=== PATIENT | female | born 1950 | race Caucasian/White ===

== ENCOUNTER 2017-04-09 18:49 | Inpatient (IN) | payer MEDICARE, OTHER ==
[2017-04-09] MEDS ORDERED: methylPREDNISolone 125 MG* 2 ML VIAL IV ONE (18:55)
[2017-04-09] MEDS ORDERED: LEVOFLOXACIN 750 MG IVPB ONE (18:55)
[2017-04-09] MEDS ORDERED: Albuterol/Ipratropium NEB.SOL* Albuterol 2.5 MG/Ipratropium 0.5 MG 3 ML INH ONE (18:55)
[2017-04-09 19:27] LABS: Hematocrit 56 % (35-47); Hemoglobin 19.5 g/dl (12.0-16.0); Mean Corpuscular HGB Conc 35 g/dl (31-36); Mean Corpuscular Hemoglobin 36 pg (27-31); Mean Corpuscular Volume 103 fL (80-97); Mean Platelet Volume 7 um3 (7.4-10.4); Red Blood Count 5.41 10^6/ul (4.0-5.4); Red Cell Distribution Width 14 % (10.5-15); White Blood Count 5.7 10^3/ul (3.5-10.8)
[2017-04-09 19:28] LABS: Add Diff/Slide Review? Slide Review Added; Comments Flag Yes
[2017-04-09] MEDS: NS 0.9% 1000 ML* 2,000 ML IV ONE ×2 (19:29→20:12)
[2017-04-09] MEDS ORDERED: cefTRIAXone(*) 1 GM in NS 0.9% 50 ML* 50 ML IVPB ONE (19:30)
[2017-04-09] MEDS ORDERED: Azithromycin IV(*) 500 MG in NS 0.9% 250 ML* 250 ML IVPB ONE (19:30)
[2017-04-09 19:46] LABS: Albumin 4.2 g/dL (3.2-5.2); BUN/Creatinine Ratio 10.9 (8-20); Calcium 9.5 mg/dL (8.6-10.3); EGFR African American 120.1 (>60); EGFR Non-African American 93.4 (>60); Globulin 3.1 g/dL (2-4); Potassium 4.2 mmol/L (3.5-5.0); Total Bilirubin 0.4 mg/dL (0.2-1.0); Total Protein 7.3 g/dL (6.4-8.9)
[2017-04-09] MEDS ORDERED: Benzonatate CAP* 100 MG PO PRN (19:48)
--- NOTE | 2017-04-09 19:54 | RAD ---
Indication: Cough, shortness of breath. Bronchitis. Chronic obstructive pulmonary disease. Comparison: December 24, 2014 Technique: Upright AP 1913 hours Report: Elevated lung volumes and both diffuse mild prominence of the interstitial markings and patchy rarefaction of the mid to upper lung zone interstitial markings. No focal pulmonary lesion, compelling alveolar consolidation, pleural effusion, pneumothorax. The heart, pulmonary vasculature, and mediastinal contours are unremarkable. IMPRESSION: Stigmata of obstructive lung disease. No acute pulmonary or cardiac process evident.
[2017-04-09] MEDS ORDERED: Azithromycin IV(*) 500 MG in NS 0.9% 250 ML* 250 ML IVPB SCH (20:00)
--- NOTE | 2017-04-09 20:11 | ED ---
Bisi Bergeron Alok, scribed for Chris Evangelista MD on 04/09/17 at 1942 . Shortness of Breath - HPI Summary HPI Summary: 66F presents to the ED for SOB for the past 5 weeks, worsening since week. Pt was last seen at 3 days ago and given Zpak and prednisone with no alleviation. Pt tried using her nebulizer at home with no alleviation. Pt also notes productive cough with clear phlem and wheezing. Pt denies fever, chills, CP, edema or calf pain. Pt denies vomit. Pt states she has slept upright for the last few years. PMHx includes COPD and emphysema. Additional PMHx includes h /o sz which she takes dilantin for. - History of Current Complaint Chief Complaint: EDShortnessOfBreath Time Seen by Provider: 04/09/17 18:54 Hx Obtained From: Patient Onset/Duration: Lasting Weeks, Still Present, Worse Since - Last week Timing: Constant Current Severity: Moderate Dyspnea At: Rest Aggrevating Factors: Nothing Alleviating Factors: Nothing Associated Signs & Symptoms: Cough (Productive), Wheezing - Allergy/Home Medications Allergies/Adverse Reactions: Allergies Allergy/AdvReac Type Severity Reaction Status Date / Time Fluoxetine [From Prozac] Allergy Severe Altered Verified 04/09/17 18:58 Mental Status Levofloxacin [From Levaquin] AdvReac Severe Nausea And Verified 04/09/17 18:58 Vomiting Codeine AdvReac Intermediate Nausea And Verified 04/09/17 18:58 Vomiting ENVIRONMENTAL/SEASONAL Allergy RUNNY Uncoded 04/09/17 18:58 ALLERGIES NOSE, COUGH, PMH/Surg Hx/FS Hx/Imm Hx Endocrine/Hematology History: Denies: Hx Diabetes, Hx Sickle Cell Disease Cardiovascular History: Reports: Hx Hypercholesterolemia, Hx Peripheral Vascular Disease - chronic ischemic Denies: Hx Hypertension, Hx Pacemaker/ICD, Other Cardiovascular Problems/ Disorders Respiratory History: Reports: Hx Asthma - Puffer qid and occas nebulizer, Hx Chronic Obstructive Pulmonary Disease (COPD), Other Respiratory Problems/ Disorders - PATIENT ON 2 LITERS OF 02 AT NIGHT GI History: Reports: Hx Gastroesophageal Reflux Disease - CONTROL WITH MEDICATION, Hx Hiatal Hernia History: Denies: Hx Dialysis, Hx Renal Disease, Other Problems/Disorders Musculoskeletal History: Reports: Hx Arthritis - BACK, BILATERAL KNEES Sensory History: Reports: Hx Cataracts - BILATERAL LENS, Hx Contacts or Glasses - GLASSES Denies: Hx Hearing Aid Opthamlomology History: Reports: Hx Cataracts - BILATERAL LENS, Hx Contacts or Glasses - GLASSES Neurological History: Reports: Hx Headaches, Hx Nerve Disease - neuropathy both feet, Hx Seizures - hx of seizures, Hx Transient Ischemic Attacks (TIA), Other Neuro Impairments/Disorders - SHORT TERM MEMORY LOSS, PAIN CLINIC PATIENT Psychiatric History: Reports: Hx Anxiety - Ativan relieves, Hx Depression - tx with meds, Hx Panic Disorder - Cancer History Cancer Type, Location and Year: [facility] - W/ SEIZURE DISORDER - Surgical History Surgery Procedure, Year, and Place: [address], [facility], [employer], [place] 1987 BRAIN TUMOR - [facility] 2012 -LAMINECTOMY [facility] - DECOMPRESSION NERVE ROOT APRIL 2013- BILATERAL CATARACTS,01/02/15 CERVICAL HEMILAMINECTOMY ANDFORAMINTOMY RT C5-6 Hx Anesthesia Reactions: No Infectious Disease History: No Infectious Disease History: Denies: Hx Hepatitis, Traveled Outside the in Last 30 Days - Social History Alcohol Use: None Substance Use Type: Reports: None Hx Tobacco Use: Yes Smoking Status (MU): Current Every Day Smoker Type: Cigars Amount Used/How Often: 2 pdd Length of Time of Smoking/Using Tobacco: 41 YRS Have You Smoked in the Last Year: Yes Review of Systems Negative: Fever, Chills Negative: Chest Pain Positive: Shortness Of Breath, Cough Negative: Vomiting Negative: Edema All Other Systems Reviewed And Are Negative: Yes Physical Exam - Summary Physical Exam Summary: The patient is ill-appearing The skin is warm and dry and skin color reflects adequate perfusion. No cyanosis. HEENT: The head is normocephalic and atraumatic. The pupils are equal and reactive. The conjunctivae are clear and without drainage. Nares are patent and without drainage. Mouth reveals extremely dry mucous membranes and the throat is with white patches on tongue and hard palate which could be thrush. The external ears are intact. The ear canals are patent and without drainage. The tympanic membranes are intact. Neck is supple with full range of motion and non-tender. There is no neck stridor. There are no carotid bruits. There is no neck vein distension. Respiratory: Chest is non-tender. Lungs diffuse rhonchi and wheezing throughout lung davila. No wheezing. Cardiovascular: Hear is regular rate and rhythm. There is no murmur or rub auscultated. There is no peripheral edema and pulses are symmetrical and equal. Abdomen: The abdomen is soft and non-tender. There are normal bowel sounds heard in all four quadrants and there is no organomegaly palpated. Musculoskeletal: There is no back pain noted. Extremities are non-tender with full range of motion. Capillary refill 3 seconds. There is no peripheral edema or calf tenderness elicited. Neurological: Patient is alert and oriented to person, place and time. The patient has symmetrical motor strength in all four extremities. Cranial nerves are grossly intact. Deep tendon reflexes are symmetrical and equal in all four extremities. Psychiatric: The patient has an appropriate affect and does not exhibit any anxiety or depression. Triage Information Reviewed: Yes Vital Signs On Initial Exam: Initial Vitals Temp Pulse Resp BP Pulse Ox 98.4 F 130 20 122/83 91 04/09/17 18:51 04/09/17 18:51 04/09/17 18:51 04/09/17 18:51 04/09/17 18:51 Vital Signs Reviewed: Yes - Blake Coma Scale Coma Scale Total: 15 Diagnostics - Vital Signs Vital Signs Temp Pulse Resp BP Pulse Ox 04/09/17 19:05 98.4 F 84 22 144/89 92 04/09/17 19:04 98.4 F 87 22 144/89 89 04/09/17 18:51 98.4 F 130 20 122/83 91 - Laboratory Lab Results: Lab Results 04/09/17 Range/Units 19:20 WBC 5.7 (3.5-10.8) 10^3/ul RBC 5.41 H (4.0-5.4) 10^6/ul Hgb 19.5 H (12.0-16.0) g/dl Hct 56 H (35-47) % MCV 103 H (80-97) fL MCH 36 H (27-31) pg MCHC 35 (31-36) g/dl RDW 14 (10.5-15) % Plt Count 154 (150-450) 10^3/ul MPV 7 L (7.4-10.4) um3 Neut % (Auto) 78.8 (38-83) % Lymph % (Auto) 17.8 L (25-47) % [place] % (Auto) 2.9 (1-9) % Eos % (Auto) 0 (0-6) % Baso % (Auto) 0.5 (0-2) % Absolute Neuts (auto) 4.5 (1.5-7.7) 10^3/ul Absolute Lymphs (auto) 1.0 (1.0-4.8) 10^3/ul Absolute Monos (auto) 0.2 (0-0.8) 10^3/ul Absolute Eos (auto) 0 (0-0.6) 10^3/ul Absolute Basos (auto) 0 (0-0.2) 10^3/ul Absolute Nucleated RBC 0 10^3/ul Nucleated RBC % 0 Result Diagrams: 04/09/17 19:20 04/09/17 19:20 Lab Statement: Any lab studies that have been ordered have been reviewed, and results considered in the medical decision making process. - Radiology CXR Xray Interpretation: Positive (See Comments) - IMPRESSION: Stigmata of obstructive lung disease. No acute pulmonary or cardiac process evident. Radiology Interpretation Completed By: Radiologist - EKG 1535 Cardiac Rate: NL - 80 bpm EKG Rhythm: Sinus Rhythm EKG Interpretation: Nml axis. No STEMI. Course/Dx - Diagnoses Differential Diagnosis/HQI/PQRI: Positive: COPD Exacerbation, Pneumonia Provider Diagnoses: Acute dyspnea, PNA (pneumonia), COPD (chronic obstructive pulmonary disease) - Physician Notifications Discussed Care of Patient With: Cory Qureshi - Will admit pt to [facility] Time Discussed With Above Provider: 19:37 - Critical Care Time Critical Care Time: 30-74 min - 30 min Discharge - Discharge Plan Condition: Stable Disposition: ADMITTED TO [facility] Referrals: Gagan Baumann MD [Primary Care Provider] - The documentation as recorded by the Bisi brambila Alok accurately reflects the service I personally performed and the decisions made by , Chris Evangelista MD.
[2017-04-09 20:14] LABS: C Reactive Protein 16.19 mg/L (< 5.00)
[2017-04-09 20:21] LABS: PCO2 Arterial 52 mmHg (35-45)
[2017-04-09] MEDS ORDERED: Albuterol HFA INHALER* 8 gm MDI INH PRN (20:47)
[2017-04-09] MEDS: Nicotine PATCH 21 MG/24 HR* PATCH TRANSDERM SCH (21:47)
[2017-04-09] MEDS: Gabapentin CAP(*) 100 MG PO SCH (21:53)
[2017-04-09] MEDS: Famotidine TAB* 20 MG PO SCH (21:53)
[2017-04-09] MEDS: Acetaminophen TAB* 325 MG PO SCH (21:53)
[2017-04-09] MEDS: LORazepam TAB(*) 1 MG PO SCH (21:54)
[2017-04-09] MEDS: Phenytoin CAP(*) 100 MG CAP.ER PO SCH (21:54)
[2017-04-09] MEDS: Heparin VIAL(*) 5000 UNITS/ML VIAL (FIVE THOUSAND) SUBCUT SCH (22:45)
[2017-04-10 00:38] LABS: Urine Bilirubin Negative (Negative); Urine Glucose Negative (Negative); Urine Nitrite Negative (Negative)
[2017-04-10] MEDS: methylPREDNISolone SOD 40 MG* 1 ML VIAL IV SCH ×3 (04:37→19:47)
[2017-04-10] MEDS: Heparin VIAL(*) 5000 UNITS/ML VIAL (FIVE THOUSAND) SUBCUT SCH ×3 (05:58→21:30)
[2017-04-10] MEDS ORDERED: Pneumococcal Vac Polyvalent* 0.5 ML VIAL IM ONE (09:00)
[2017-04-10] MEDS: Nicotine PATCH 21 MG/24 HR* PATCH TRANSDERM SCH (09:00)
[2017-04-10] MEDS: Gabapentin CAP(*) 100 MG PO SCH ×3 (09:03→20:53)
[2017-04-10] MEDS: LORazepam TAB(*) 1 MG PO SCH ×2 (09:05→20:54)
[2017-04-10] MEDS: CMC:Escitalopram (NF) 10 MG TAB PO SCH (09:05)
[2017-04-10] MEDS: Cetirizine* 10 MG TAB PO SCH (09:05)
[2017-04-10] MEDS: Famotidine TAB* 20 MG PO SCH ×2 (09:05→20:56)
[2017-04-10] MEDS: Pseudoephedrine HCL ER TAB* 120 MG PO SCH (09:06)
[2017-04-10] MEDS: Phenytoin CAP(*) 100 MG CAP.ER PO SCH ×2 (09:06→20:54)
[2017-04-10] MEDS ORDERED: Albuterol/Ipratropium NEB.SOL* Albuterol 2.5 MG/Ipratropium 0.5 MG 3 ML INH PRN (09:16)
[2017-04-10] MEDS: Cholecalciferol TAB* 1000 UNITS PO SCH (12:52)
--- NOTE | 2017-04-10 13:01 | HP ---
CC: Dr. Baumann.* HISTORY AND PHYSICAL: ADMISSION DATE: 04/09/17 CHIEF COMPLAINT: Shortness of breath. HISTORY OF PRESENT ILLNESS: The patient is a 66-year-old woman who presents to [facility] who comes in complaining about shortness of breath that started about 5 weeks ago. She went to [facility] about few days afterwards with increased coughing, wheezing, and was placed on doxycycline and prednisone and initially felt somewhat better. She did have some occasional chest pain, but that seemed to occur whenever she coughed. The cough was productive of clear phlegm and has not changed. Her shortness of breath became worse and her wheezing became worse. She went back to [facility] again on Wednesday at the urging of her daughter. There, she was given Zithromax, another tapering dose of prednisone starting at 50 mg, and refill of her nebulizers. It should be noticed that the patient did run out of her nebulizers at home for some time, which obviously made the situation somewhat worse. She comes in today with worsening shortness of breath, worsening wheezing, and worsening cough. She is being admitted for a COPD exacerbation. PAST MEDICAL HISTORY: The patient's past medical history is noted for COPD. She has a seizure disorder. She has had a meningioma removed. She has had trigeminal neuralgia. She has had appendectomy. She has had bilateral cataract surgery. She has had a lower spine surgery in the form of a laminectomy and she has had all her teeth removed and dentures placed. MEDICATIONS: Her current home medications are as follows: 1. Tegretol 200 mg twice daily. 2. Albuterol inhaler 2 puffs every 4 hours as needed. 3. Lexapro 20 mg daily. 4. Tylenol PM 2 tablets at bedtime. 5. Vitamin D3 4000 units daily. 6. Zyrtec D 1 tab daily. 7. Dilantin 100 mg twice daily. 8. Lorazepam 1 mg twice daily. 9. Gabapentin 300 mg 3 times a day. 10. Ranitidine 300 mg twice a day. ALLERGIES: She has allergies to LEVAQUIN, PROZAC, CODEINE, and SEASONAL ALLERGIES. FAMILY HISTORY: Mother at 81 of coronary artery disease and heart failure. Father at 73 of CVA. SOCIAL HISTORY: She still smokes 2-1/2 packs a day. He has smoked up to 4 packs a day and has done this since he was 16 years old. No alcohol or recreational drug use. She is on disability for her seizures. She is a with 7 children. Her daughter, Kell Wilkes, is her healthcare proxy. REVIEW OF SYSTEMS: A 14-point review of systems was completed with the patient. All pertinent positives and negatives are in the history of present illness, otherwise negative. PHYSICAL EXAMINATION GENERAL: A very pleasant woman, lying in bed, somewhat short of breath, but not in acute distress. VITAL SIGNS: Temperature 98.4 degrees, heart rate 81 beats per minute, respiratory rate 13 breaths per minute, pulse ox 93%, blood pressure 120/90. HEENT: Normocephalic, atraumatic. Pupils are equal, round, and reactive to light. Moist mucous membranes. NECK: Supple. No JVD, bruits, or palpable thyroid or lymphadenopathy. CHEST: Bilateral diffuse wheezing or rhonchi. CARDIOVASCULAR: S1, S2 appreciated. ABDOMINAL EXAM: Positive bowel sounds in all 4 quadrants. Soft, nontender, nondistended. EXTREMITIES: No cyanosis, clubbing, or edema. +2 pulses bilaterally. NEURO: Alert and oriented x3. Moves all extremities. SKIN: No rashes or abnormalities. DIAGNOSTIC STUDIES/LAB DATA: White count of 5.7, hemoglobin 19.5, hematocrit 56, platelets are 154. Sodium 135, potassium 4.2, chloride 100, CO2 30, BUN 7, creatinine 1.64, glucose 131. Her INR is 0.86. ABG, pH 7.24, pCO2 52, pO2 56, O2 sat 93.6. Chest x-ray was interpreted by Radiology as stigmata of COPD, no acute pulmonary process evident. EKG shows normal sinus rhythm at 80 beats per minute, normal axis, no acute ST- T wave changes. ASSESSMENT AND PLAN: 1. Possible pneumonia with chronic obstructive pulmonary disease exacerbation. I will treat her as such, place the patient on azithromycin and Zosyn. Check a sputum C and S, urine for legionella, and pneumococcal antigen. She also obviously has a chronic obstructive pulmonary disease exacerbation. We will continue Solu-Medrol, respiratory driven protocol. 2. Seizure disorder. Continue current regimen. 3. Trigeminal neuralgia. Continue current regimen. 4. Depression. Continue Lexapro. 5. Tobacco abuse disorder. Nicotine patch. 6. DVT prophylaxis. Heparin subcu. 7. FEN. Regular diet. 8. The patient is a full code. TIME SPENT: Over 70 minutes was spent on this H and P, more than 45 minutes of which was spent in direct [id number] contact with the patient in evaluation, physical exam, and counselling and coordination of care. [id number]/CPS #: [id number] MTDD
[2017-04-10] MEDS: Albuterol/Ipratropium NEB.SOL* Albuterol 2.5 MG/Ipratropium 0.5 MG 3 ML INH SCH ×2 (13:22→19:26)
[2017-04-10] MEDS ORDERED: LORazepam TAB(*) 0.5 MG PO PRN (13:39)
--- NOTE | 2017-04-10 13:48 | PN ---
Subjective Date of Service: 04/10/17 Interval History: This is a 66 yo female with COPD, sz d/o, and trigeminal neuralgia who presented with c/o SOB. Patient was severely hypoxic in the emergency room initially requiring 10L via face mask. She is still on 8L via NC. She states that she needed home O2 several years ago but was told it was not necessary. She was started on Advair a few days ago, but prior to that was not on any maintenance inhalers and reports needing her albuterol inhaler ~once daily at baseline. This am she is still quite SOB with high O2 demands. She states her coughing fits have improved slightly but her dyspnea is not significantly better than it was at admission. Objective Active Medications: Acetaminophen (Tylenol Tab*) 975 mg PO BEDTIME [facility] Last Admin: 04/09/17 21:53 Dose: 975 mg Albuterol (Ventolin Hfa Inhaler*) 2 puff INH Q4H PRN PRN Reason: SOB/WHEEZING Albuterol/Ipratropium (Duoneb (Albuterol 2.5 Mg/Ipratropium 0.5 Mg)) 1 neb INH [id number] AWAKE [facility] Last Admin: 04/10/17 13:22 Dose: 1 neb Albuterol/Ipratropium (Duoneb (Albuterol 2.5 Mg/Ipratropium 0.5 Mg)) 1 neb INH Q4H PRN PRN Reason: SOB/WHEEZING Benzonatate (Tessalon Cap*) 200 mg PO TID PRN PRN Reason: COUGH Cetirizine HCl (Zyrtec*) 10 mg PO DAILY [facility] Last Admin: 04/10/17 09:05 Dose: 10 mg Cholecalciferol (Vitamin D Tab*) 4,000 units PO 1200 [facility] Last Admin: 04/10/17 12:52 Dose: 4,000 units Diphenhydramine HCl (Benadryl Po*) 50 mg PO BEDTIME [facility] Escitalopram Oxalate (Lexapro (Nf)) 20 mg PO DAILY [facility] Last Admin: 04/10/17 09:05 Dose: 20 mg Famotidine (Pepcid Tab*) 40 mg PO BID [facility] PRN Reason: Protocol Last Admin: 04/10/17 09:05 Dose: 40 mg Gabapentin (Neurontin Cap(*)) 300 mg PO TID [facility] Last Admin: 04/10/17 12:53 Dose: 300 mg Heparin Sodium (Porcine) (Heparin Vial(*)) 5,000 units SUBCUT Q8HR [facility] Last Admin: 04/10/17 12:52 Dose: 5,000 units Piperacillin Sod/Tazobactam (Sod 3.375 gm/ Sodium Chloride) 100 mls @ 25 mls/ hr IVPB Q8H [facility] Last Admin: 04/10/17 12:50 Dose: 25 mls/hr Azithromycin 500 mg/ Sodium (Chloride) 250 mls @ 250 mls/hr IVPB Q24HR@2000 [facility] Lorazepam (Ativan Tab(*)) 1 mg PO BID [facility] Last Admin: 04/10/17 09:05 Dose: 1 mg Methylprednisolone Sodium Succinate (Solu-Medrol 40 Mg) 40 mg IV Q8H [facility] Last Admin: 04/10/17 12:52 Dose: 40 mg Nicotine (Nicotine Patch 21 Mg/24 Hr*) 1 patch TRANSDERM Q24HR [facility] Last Admin: 04/10/17 09:00 Dose: 1 patch Pharmacy Profile Note (Nicotine Patch Removal Note*) 1 note PATCH OFF 2100 [facility] Phenytoin Sodium (Dilantin Cap(*)) 100 mg PO BID [facility] Last Admin: 04/10/17 09:06 Dose: 100 mg Pseudoephedrine HCl (Sudafed 12 Hour*) 120 mg PO DAILY [facility] Last Admin: 04/10/17 09:06 Dose: 120 mg Vital Signs: Temp Pulse Resp BP Pulse Ox 98.3 F 77 18 117/63 92 04/10/17 07:23 04/10/17 13:30 04/10/17 13:30 04/10/17 07:23 04/10/17 13:30 Oxygen Devices in Use Now: Nasal Cannula Appearance: 66 yo female who appears older than her stated age with some increased work of breathing Neck: NL Appearance and Movements; NL JVP Respiratory: Symmetrical Chest Expansion and Respiratory Effort, - - prolonged exp phase and tachypneic diffuse wheezing and rhonchi Cardiovascular: NL Sounds; No Murmurs; No JVD, RRR Extremities: No Edema Skin: No Rash or Ulcers Neurological: Alert and Oriented x 3 Result Diagrams: 04/09/17 19:20 04/09/17 19:20 Additional Lab and Data: . Microbiology and Other Data: Microbiology 04/10/17 00:25 Legionella Urinary Antigen - Final Urine Negative Legionella Streptococcus pneumoniae Ag Screen - Final Negative S. pneumo Antigen Diagnostic Imaging: CXR - chronic changes assoc with COPD, but nothing acute Assess/Plan/Problems-Billing Assessment: This is a 66 yo female with COPD, sz d/o and trigeminal neuralgia admitted with a COPD exacerbation. - Patient Problems (1) COPD exacerbation Comment: Patient's O2 requirements remain quite high, no supp O2 needs at baseline She remains tachypneic and dyspneic Cont IV solumedrol and azithromycin Start schedule Duonebs, Dulera and spiriva Use prn Ativan to reduce anxiety and air hunger (2) Seizure disorder Comment: Sz precautions in place Stable Cont home meds (3) Trigeminal neuralgia Comment: Cont tegretol (4) Full code status (5) DVT prophylaxis Comment: SQ heparin Status and Disposition: Inpatient. Anticipate additional 2-3d LOS.
[2017-04-10] MEDS ORDERED: Spiriva Inhaler DEVICE* 1 EACH DEVICE INH ONE (14:00)
[2017-04-10] MEDS: carBAMazepine TAB(*) 200 MG PO SCH ×2 (15:44→20:55)
[2017-04-10] MEDS: Tiotropium CAP.INH* CAP.INH/18 MCG INH SCH (15:44)
[2017-04-10] MEDS: Azithromycin IV(*) 500 MG in NS 0.9% 250 ML* 250 ML IVPB SCH (19:37)
[2017-04-10] MEDS: Mometasone/Formoter 200/5 MDI INH SCH (20:38)
[2017-04-10] MEDS: diPHENhydraMINE PO* 50 MG PO SCH (20:54)
[2017-04-10] MEDS: Acetaminophen TAB* 325 MG PO SCH (20:54)
[2017-04-10] MEDS: Nicotine Patch Removal NOTE PATCH OFF SCH (20:59)
[2017-04-10] MEDS ORDERED: carBAMazepine TAB(*) 200 MG PO SCH (21:00)
[2017-04-11] MEDS: Albuterol/Ipratropium NEB.SOL* Albuterol 2.5 MG/Ipratropium 0.5 MG 3 ML INH SCH ×4 (00:56→19:00)
[2017-04-11] MEDS: methylPREDNISolone SOD 40 MG* 1 ML VIAL IV SCH ×3 (04:05→19:30)
[2017-04-11] MEDS: Heparin VIAL(*) 5000 UNITS/ML VIAL (FIVE THOUSAND) SUBCUT SCH ×3 (06:00→21:48)
[2017-04-11] MEDS: Cetirizine* 10 MG TAB PO SCH (07:37)
[2017-04-11] MEDS: carBAMazepine TAB(*) 200 MG PO SCH ×2 (07:38→20:56)
[2017-04-11] MEDS: Pseudoephedrine HCL ER TAB* 120 MG PO SCH (07:38)
[2017-04-11] MEDS: CMC:Escitalopram (NF) 10 MG TAB PO SCH (07:39)
[2017-04-11] MEDS: Famotidine TAB* 20 MG PO SCH ×2 (07:39→20:58)
[2017-04-11] MEDS: Gabapentin CAP(*) 100 MG PO SCH ×3 (07:40→20:57)
[2017-04-11] MEDS: Nicotine PATCH 21 MG/24 HR* PATCH TRANSDERM SCH (07:41)
[2017-04-11] MEDS: Phenytoin CAP(*) 100 MG CAP.ER PO SCH ×2 (07:41→20:56)
[2017-04-11] MEDS: LORazepam TAB(*) 1 MG PO SCH ×2 (07:44→20:58)
[2017-04-11] MEDS: Tiotropium CAP.INH* CAP.INH/18 MCG INH SCH (08:08)
[2017-04-11] MEDS: Mometasone/Formoter 200/5 MDI INH SCH ×2 (08:08→19:00)
--- NOTE | 2017-04-11 11:58 | PN ---
Subjective Date of Service: 04/11/17 Interval History: Patient reports improvement in her dyspnea and cough today. She was able to get some sleep last night. Her level of anxiety has improved. She is still requiring high levels of O2. Objective Active Medications: Acetaminophen (Tylenol Tab*) 975 mg PO BEDTIME [facility] Last Admin: 04/10/17 20:54 Dose: 975 mg Albuterol (Ventolin Hfa Inhaler*) 2 puff INH Q4H PRN PRN Reason: SOB/WHEEZING Albuterol/Ipratropium (Duoneb (Albuterol 2.5 Mg/Ipratropium 0.5 Mg)) 1 neb INH [id number] AWAKE [facility] Last Admin: 04/11/17 08:07 Dose: 1 neb Albuterol/Ipratropium (Duoneb (Albuterol 2.5 Mg/Ipratropium 0.5 Mg)) 1 neb INH Q4H PRN PRN Reason: SOB/WHEEZING Benzonatate (Tessalon Cap*) 200 mg PO TID PRN PRN Reason: COUGH Carbamazepine (Tegretol Tab(*)) 200 mg PO BID [facility] Last Admin: 04/11/17 07:38 Dose: 200 mg Cetirizine HCl (Zyrtec*) 10 mg PO DAILY [facility] Last Admin: 04/11/17 07:37 Dose: 10 mg Cholecalciferol (Vitamin D Tab*) 4,000 units PO 1200 [facility] Last Admin: 04/10/17 12:52 Dose: 4,000 units Diphenhydramine HCl (Benadryl Po*) 50 mg PO BEDTIME [facility] Last Admin: 04/10/17 20:54 Dose: 50 mg Escitalopram Oxalate (Lexapro (Nf)) 20 mg PO DAILY [facility] Last Admin: 04/11/17 07:39 Dose: 20 mg Famotidine (Pepcid Tab*) 40 mg PO BID [facility] PRN Reason: Protocol Last Admin: 04/11/17 07:39 Dose: 40 mg Gabapentin (Neurontin Cap(*)) 300 mg PO TID [facility] Last Admin: 04/11/17 07:40 Dose: 300 mg Heparin Sodium (Porcine) (Heparin Vial(*)) 5,000 units SUBCUT Q8HR [facility] Last Admin: 04/11/17 06:00 Dose: 5,000 units Piperacillin Sod/Tazobactam (Sod 3.375 gm/ Sodium Chloride) 100 mls @ 25 mls/ hr IVPB Q8H [facility] Last Admin: 04/11/17 04:06 Dose: 25 mls/hr Azithromycin 500 mg/ Sodium (Chloride) 250 mls @ 250 mls/hr IVPB Q24HR@2000 [facility] Last Admin: 04/10/17 19:37 Dose: 250 mls/hr Lorazepam (Ativan Tab(*)) 1 mg PO BID [facility] Last Admin: 04/11/17 07:44 Dose: Not Given Lorazepam (Ativan Tab(*)) 0.5 mg PO Q6H PRN PRN Reason: ANXIETY Last Admin: 04/10/17 15:53 Dose: 0.5 mg Methylprednisolone Sodium Succinate (Solu-Medrol 40 Mg) 40 mg IV Q8H [facility] Last Admin: 04/11/17 04:05 Dose: 40 mg Mometasone Furoate/Formoterol Fumar (Dulera 200/5 Mdi*) 2 puff INH BID [facility] Last Admin: 04/11/17 08:08 Dose: 2 puff Nicotine (Nicotine Patch 21 Mg/24 Hr*) 1 patch TRANSDERM Q24HR [facility] Last Admin: 04/11/17 07:41 Dose: 1 patch Pharmacy Profile Note (Nicotine Patch Removal Note*) 1 note PATCH OFF 2100 [facility] Last Admin: 04/10/17 20:59 Dose: Not Given Phenytoin Sodium (Dilantin Cap(*)) 100 mg PO BID [facility] Last Admin: 04/11/17 07:41 Dose: 100 mg Pseudoephedrine HCl (Sudafed 12 Hour*) 120 mg PO DAILY [facility] Last Admin: 04/11/17 07:38 Dose: 120 mg Tiotropium [place] (Spiriva Cap.Inh*) 1 cap INH DAILY [facility] Last Admin: 04/11/17 08:08 Dose: 1 cap Vital Signs: Temp Pulse Resp BP Pulse Ox 97.7 F 74 18 139/67 90 04/11/17 07:52 04/11/17 08:09 04/11/17 08:09 04/11/17 07:52 04/11/17 08:09 Oxygen Devices in Use Now: Nasal Cannula Appearance: Ill appearing 66 yo female in NAD. Work of breathing improved as compared to yesterday Respiratory: Symmetrical Chest Expansion and Respiratory Effort, - - diffuse wheezing, normal WOB Cardiovascular: NL Sounds; No Murmurs; No JVD, RRR Abdominal: NL Sounds; No Tenderness; No Distention Extremities: No Edema Skin: No Rash or Ulcers Neurological: Alert and Oriented x 3 Result Diagrams: 04/09/17 19:20 04/09/17 19:20 Additional Lab and Data: . Microbiology and Other Data: Microbiology 04/10/17 00:25 Legionella Urinary Antigen - Final Urine Negative Legionella Streptococcus pneumoniae Ag Screen - Final Negative S. pneumo Antigen Diagnostic Imaging: CXR - chronic changes assoc with COPD, but nothing acute Assess/Plan/Problems-Billing Assessment: This is a 66 yo female with COPD, sz d/o and trigeminal neuralgia admitted with a COPD exacerbation. - Patient Problems (1) COPD exacerbation Comment: Patient's O2 requirements remain quite high, no supp O2 needs at baseline Improving dyspnea and tachypnea has resolved Cont azithromycin Transition to oral prednisone Started schedule Duonebs, Dulera and spiriva Use prn Ativan to reduce anxiety and air hunger (2) Seizure disorder Comment: Sz precautions in place Stable Cont home meds (3) Trigeminal neuralgia Comment: Cont tegretol (4) Full code status (5) DVT prophylaxis Comment: SQ heparin Status and Disposition: Inpatient. Anticipate additional 2-3d LOS. Will likely require home O2 at dc
[2017-04-11] MEDS: Cholecalciferol TAB* 1000 UNITS PO SCH (13:56)
[2017-04-11] MEDS: Azithromycin IV(*) 500 MG in NS 0.9% 250 ML* 250 ML IVPB SCH (19:29)
[2017-04-11] MEDS: diPHENhydraMINE PO* 50 MG PO SCH (20:56)
[2017-04-11] MEDS: Acetaminophen TAB* 325 MG PO SCH (20:57)
[2017-04-11] MEDS: Nicotine Patch Removal NOTE PATCH OFF SCH (20:58)
[2017-04-12] MEDS: Albuterol/Ipratropium NEB.SOL* Albuterol 2.5 MG/Ipratropium 0.5 MG 3 ML INH SCH ×4 (01:10→19:47)
[2017-04-12] MEDS: Heparin VIAL(*) 5000 UNITS/ML VIAL (FIVE THOUSAND) SUBCUT SCH ×3 (05:56→21:39)
[2017-04-12] MEDS: Tiotropium CAP.INH* CAP.INH/18 MCG INH SCH (08:13)
[2017-04-12] MEDS: Mometasone/Formoter 200/5 MDI INH SCH ×2 (08:15→19:51)
[2017-04-12] MEDS: predniSONE TAB* 20 MG PO SCH (08:43)
[2017-04-12] MEDS: Famotidine TAB* 20 MG PO SCH ×2 (08:43→21:40)
[2017-04-12] MEDS: LORazepam TAB(*) 1 MG PO SCH ×2 (08:43→21:40)
[2017-04-12] MEDS: Pseudoephedrine HCL ER TAB* 120 MG PO SCH (08:44)
[2017-04-12] MEDS: Phenytoin CAP(*) 100 MG CAP.ER PO SCH ×2 (08:44→21:41)
[2017-04-12] MEDS: Cetirizine* 10 MG TAB PO SCH (08:44)
[2017-04-12] MEDS: carBAMazepine TAB(*) 200 MG PO SCH ×2 (08:44→21:40)
[2017-04-12] MEDS: CMC:Escitalopram (NF) 10 MG TAB PO SCH (08:44)
[2017-04-12] MEDS: Nicotine PATCH 21 MG/24 HR* PATCH TRANSDERM SCH (08:45)
[2017-04-12] MEDS: Gabapentin CAP(*) 100 MG PO SCH ×3 (08:45→21:39)
[2017-04-12 09:27] LABS: EGFR African American 97.1 (>60); EGFR Non-African American 75.5 (>60); Potassium 3.6 mmol/L (3.5-5.0)
[2017-04-12] MEDS: Cholecalciferol TAB* 1000 UNITS PO SCH (13:50)
--- NOTE | 2017-04-12 14:38 | PN ---
Subjective Date of Service: 04/12/17 Interval History: Patient reports some improvement in dyspnea. She took a shower today. No new symptoms noted. Objective Active Medications: Acetaminophen (Tylenol Tab*) 975 mg PO BEDTIME [facility] Last Admin: 04/11/17 20:57 Dose: 975 mg Albuterol (Ventolin Hfa Inhaler*) 2 puff INH Q4H PRN PRN Reason: SOB/WHEEZING Albuterol/Ipratropium (Duoneb (Albuterol 2.5 Mg/Ipratropium 0.5 Mg)) 1 neb INH [id number] AWAKE [facility] Last Admin: 04/12/17 13:46 Dose: 1 neb Albuterol/Ipratropium (Duoneb (Albuterol 2.5 Mg/Ipratropium 0.5 Mg)) 1 neb INH Q4H PRN PRN Reason: SOB/WHEEZING Benzonatate (Tessalon Cap*) 200 mg PO TID PRN PRN Reason: COUGH Carbamazepine (Tegretol Tab(*)) 200 mg PO BID [facility] Last Admin: 04/12/17 08:44 Dose: 200 mg Cetirizine HCl (Zyrtec*) 10 mg PO DAILY [facility] Last Admin: 04/12/17 08:44 Dose: 10 mg Cholecalciferol (Vitamin D Tab*) 4,000 units PO 1200 [facility] Last Admin: 04/12/17 13:50 Dose: 4,000 units Diphenhydramine HCl (Benadryl Po*) 50 mg PO BEDTIME [facility] Last Admin: 04/11/17 20:56 Dose: 50 mg Escitalopram Oxalate (Lexapro (Nf)) 20 mg PO DAILY [facility] Last Admin: 04/12/17 08:44 Dose: 20 mg Famotidine (Pepcid Tab*) 40 mg PO BID [facility] PRN Reason: Protocol Last Admin: 04/12/17 08:43 Dose: 40 mg Gabapentin (Neurontin Cap(*)) 300 mg PO TID [facility] Last Admin: 04/12/17 13:51 Dose: 300 mg Heparin Sodium (Porcine) (Heparin Vial(*)) 5,000 units SUBCUT Q8HR [facility] Last Admin: 04/12/17 13:51 Dose: 5,000 units Piperacillin Sod/Tazobactam (Sod 3.375 gm/ Sodium Chloride) 100 mls @ 25 mls/ hr IVPB Q8H [facility] Last Admin: 04/12/17 12:37 Dose: 25 mls/hr Azithromycin 500 mg/ Sodium (Chloride) 250 mls @ 250 mls/hr IVPB Q24HR@2000 [facility] Last Admin: 04/11/17 19:29 Dose: 250 mls/hr Lorazepam (Ativan Tab(*)) 1 mg PO BID [facility] Last Admin: 04/12/17 08:43 Dose: 1 mg Lorazepam (Ativan Tab(*)) 0.5 mg PO Q6H PRN PRN Reason: ANXIETY Last Admin: 04/10/17 15:53 Dose: 0.5 mg Mometasone Furoate/Formoterol Fumar (Dulera 200/5 Mdi*) 2 puff INH BID [facility] Last Admin: 04/12/17 08:15 Dose: 2 puff Nicotine (Nicotine Patch 21 Mg/24 Hr*) 1 patch TRANSDERM Q24HR [facility] Last Admin: 04/12/17 08:45 Dose: 1 patch Pharmacy Profile Note (Nicotine Patch Removal Note*) 1 note PATCH OFF 2100 [facility] Last Admin: 04/11/17 20:58 Dose: Not Given Phenytoin Sodium (Dilantin Cap(*)) 100 mg PO BID [facility] Last Admin: 04/12/17 08:44 Dose: 100 mg Prednisone (Deltasone Tab*) 60 mg PO DAILY [facility] Last Admin: 04/12/17 08:43 Dose: 60 mg Pseudoephedrine HCl (Sudafed 12 Hour*) 120 mg PO DAILY [facility] Last Admin: 04/12/17 08:44 Dose: 120 mg Tiotropium [place] (Spiriva Cap.Inh*) 1 cap INH DAILY [facility] Last Admin: 04/12/17 08:13 Dose: 1 cap Vital Signs: Temp Pulse Resp BP Pulse Ox 98.3 F 104 16 130/66 96 04/12/17 07:22 04/12/17 13:49 04/12/17 13:51 04/12/17 07:22 04/12/17 13:49 Oxygen Devices in Use Now: Nasal Cannula Appearance: Mildly ill appearing 66 yo female in NAD. Accompanied by family Respiratory: Symmetrical Chest Expansion and Respiratory Effort, - - improved air exchange, diffuse wheezing Cardiovascular: RRR Extremities: No Edema Skin: No Rash or Ulcers Neurological: Alert and Oriented x 3 Result Diagrams: 04/09/17 19:20 04/12/17 08:51 Additional Lab and Data: . Microbiology and Other Data: Microbiology 04/10/17 00:25 Legionella Urinary Antigen - Final Urine Negative Legionella Streptococcus pneumoniae Ag Screen - Final Negative S. pneumo Antigen Diagnostic Imaging: CXR - chronic changes assoc with COPD, but nothing acute Assess/Plan/Problems-Billing Assessment: This is a 66 yo female with COPD, sz d/o and trigeminal neuralgia admitted with a COPD exacerbation. - Patient Problems (1) Acute respiratory failure Comment: Secondary to COPD exacerbation Severe hypoxia initially requiring 10L supp O2, now titrated down to 8L (2) COPD exacerbation Comment: Patient's O2 requirements remain quite high, no reported supp O2 needs at baseline Improving dyspnea and tachypnea has resolved No evidence of associated PNA Cont azithromycin Cont prednisone Started schedule Duonebs, Dulera and spiriva Use prn Ativan to reduce anxiety and air hunger (3) Seizure disorder Comment: Sz precautions in place Stable Cont home meds (4) Trigeminal neuralgia Comment: Cont tegretol (5) Full code status (6) DVT prophylaxis Comment: SQ heparin Status and Disposition: Inpatient. Anticipate additional 1-2d LOS. Will likely require home O2 at dc
[2017-04-12] MEDS: Azithromycin IV(*) 500 MG in NS 0.9% 250 ML* 250 ML IVPB SCH (20:02)
[2017-04-12] MEDS: diPHENhydraMINE PO* 50 MG PO SCH (21:40)
[2017-04-12] MEDS: Acetaminophen TAB* 325 MG PO SCH (21:41)
[2017-04-12] MEDS: Nicotine Patch Removal NOTE PATCH OFF SCH (21:44)
[2017-04-13] MEDS: Albuterol/Ipratropium NEB.SOL* Albuterol 2.5 MG/Ipratropium 0.5 MG 3 ML INH SCH ×4 (00:27→19:30)
[2017-04-13] MEDS: Heparin VIAL(*) 5000 UNITS/ML VIAL (FIVE THOUSAND) SUBCUT SCH ×3 (05:35→21:40)
[2017-04-13] MEDS: Mometasone/Formoter 200/5 MDI INH SCH ×2 (07:50→19:30)
[2017-04-13] MEDS: Tiotropium CAP.INH* CAP.INH/18 MCG INH SCH (07:50)
[2017-04-13] MEDS: CMC:Escitalopram (NF) 10 MG TAB PO SCH (09:30)
[2017-04-13] MEDS: Cetirizine* 10 MG TAB PO SCH (09:30)
[2017-04-13] MEDS: predniSONE TAB* 20 MG PO SCH (09:30)
[2017-04-13] MEDS: Famotidine TAB* 20 MG PO SCH ×2 (09:30→21:39)
[2017-04-13] MEDS: LORazepam TAB(*) 1 MG PO SCH ×2 (09:31→21:40)
[2017-04-13] MEDS: Gabapentin CAP(*) 100 MG PO SCH ×3 (09:31→21:37)
[2017-04-13] MEDS: carBAMazepine TAB(*) 200 MG PO SCH ×2 (09:31→21:39)
[2017-04-13] MEDS: Phenytoin CAP(*) 100 MG CAP.ER PO SCH ×2 (09:31→21:40)
[2017-04-13] MEDS: Pseudoephedrine HCL ER TAB* 120 MG PO SCH (09:32)
[2017-04-13] MEDS: Nicotine PATCH 21 MG/24 HR* PATCH TRANSDERM SCH (09:32)
--- NOTE | 2017-04-13 11:16 | PN ---
Subjective Date of Service: 04/13/17 Interval History: Patient reports some increased cough, but improved dyspnea. No new symptoms Objective Active Medications: Acetaminophen (Tylenol Tab*) 975 mg PO BEDTIME [facility] Last Admin: 04/12/17 21:41 Dose: 975 mg Albuterol (Ventolin Hfa Inhaler*) 2 puff INH Q4H PRN PRN Reason: SOB/WHEEZING Albuterol/Ipratropium (Duoneb (Albuterol 2.5 Mg/Ipratropium 0.5 Mg)) 1 neb INH [id number] AWAKE [facility] Last Admin: 04/13/17 07:50 Dose: 1 neb Albuterol/Ipratropium (Duoneb (Albuterol 2.5 Mg/Ipratropium 0.5 Mg)) 1 neb INH Q4H PRN PRN Reason: SOB/WHEEZING Benzonatate (Tessalon Cap*) 200 mg PO TID PRN PRN Reason: COUGH Carbamazepine (Tegretol Tab(*)) 200 mg PO BID [facility] Last Admin: 04/13/17 09:31 Dose: 200 mg Cetirizine HCl (Zyrtec*) 10 mg PO DAILY [facility] Last Admin: 04/13/17 09:30 Dose: 10 mg Cholecalciferol (Vitamin D Tab*) 4,000 units PO 1200 [facility] Last Admin: 04/12/17 13:50 Dose: 4,000 units Diphenhydramine HCl (Benadryl Po*) 50 mg PO BEDTIME [facility] Last Admin: 04/12/17 21:40 Dose: 50 mg Escitalopram Oxalate (Lexapro (Nf)) 20 mg PO DAILY [facility] Last Admin: 04/13/17 09:30 Dose: 20 mg Famotidine (Pepcid Tab*) 40 mg PO BID [facility] PRN Reason: Protocol Last Admin: 04/13/17 09:30 Dose: 40 mg Gabapentin (Neurontin Cap(*)) 300 mg PO TID [facility] Last Admin: 04/13/17 09:31 Dose: 300 mg Heparin Sodium (Porcine) (Heparin Vial(*)) 5,000 units SUBCUT Q8HR [facility] Last Admin: 04/13/17 05:35 Dose: 5,000 units Piperacillin Sod/Tazobactam (Sod 3.375 gm/ Sodium Chloride) 100 mls @ 25 mls/ hr IVPB Q8H [facility] Last Admin: 04/13/17 03:59 Dose: 25 mls/hr Azithromycin 500 mg/ Sodium (Chloride) 250 mls @ 250 mls/hr IVPB Q24HR@2000 [facility] Last Admin: 04/12/17 20:02 Dose: 250 mls/hr Lorazepam (Ativan Tab(*)) 1 mg PO BID [facility] Last Admin: 04/13/17 09:31 Dose: 1 mg Lorazepam (Ativan Tab(*)) 0.5 mg PO Q6H PRN PRN Reason: ANXIETY Last Admin: 04/10/17 15:53 Dose: 0.5 mg Mometasone Furoate/Formoterol Fumar (Dulera 200/5 Mdi*) 2 puff INH BID [facility] Last Admin: 04/13/17 07:50 Dose: 2 puff Nicotine (Nicotine Patch 21 Mg/24 Hr*) 1 patch TRANSDERM Q24HR [facility] Last Admin: 04/13/17 09:32 Dose: 1 patch Pharmacy Profile Note (Nicotine Patch Removal Note*) 1 note PATCH OFF 2100 [facility] Last Admin: 04/12/17 21:44 Dose: Not Given Phenytoin Sodium (Dilantin Cap(*)) 100 mg PO BID [facility] Last Admin: 04/13/17 09:31 Dose: 100 mg Prednisone (Deltasone Tab*) 60 mg PO DAILY [facility] Last Admin: 04/13/17 09:30 Dose: 60 mg Pseudoephedrine HCl (Sudafed 12 Hour*) 120 mg PO DAILY [facility] Last Admin: 04/13/17 09:32 Dose: 120 mg Tiotropium [place] (Spiriva Cap.Inh*) 1 cap INH DAILY [facility] Last Admin: 04/13/17 07:50 Dose: 1 cap Vital Signs: Temp Pulse Resp BP Pulse Ox 98.1 F 67 16 143/69 98 04/13/17 07:47 04/13/17 07:53 04/13/17 09:31 04/13/17 07:47 04/13/17 07:53 Oxygen Devices in Use Now: Nasal Cannula Appearance: Mildly ill appearing, but in NAD. Respiratory: Symmetrical Chest Expansion and Respiratory Effort, - - good air exchange, only faint wheezing noted Cardiovascular: RRR Extremities: No Edema Neurological: Alert and Oriented x 3 Result Diagrams: 04/09/17 19:20 04/12/17 08:51 Additional Lab and Data: . Microbiology and Other Data: Microbiology 04/10/17 00:25 Legionella Urinary Antigen - Final Urine Negative Legionella Streptococcus pneumoniae Ag Screen - Final Negative S. pneumo Antigen Diagnostic Imaging: CXR - chronic changes assoc with COPD, but nothing acute Assess/Plan/Problems-Billing Assessment: This is a 66 yo female with COPD, sz d/o and trigeminal neuralgia admitted with a COPD exacerbation. - Patient Problems (1) Acute respiratory failure Comment: Secondary to COPD exacerbation Severe hypoxia initially requiring 10L supp O2, now titrated down to 7L (2) COPD exacerbation Comment: Slowly improving with improved breath sounds and decreased wheezing Patient's O2 requirements remain quite high, titrated down to 7L this am Improving dyspnea and tachypnea has resolved No evidence of associated PNA Cont azithromycin through tomorrow Cont prednisone Started schedule Duonebs, Dulera and spiriva Use prn Ativan to reduce anxiety and air hunger (3) Seizure disorder Comment: Sz precautions in place Stable Cont home meds (4) Trigeminal neuralgia Comment: Cont tegretol (5) Full code status (6) DVT prophylaxis Comment: SQ heparin Status and Disposition: Inpatient. Anticipate likely dc tomorrow. Will require home O2 at dc
[2017-04-13] MEDS: Cholecalciferol TAB* 1000 UNITS PO SCH (12:29)
[2017-04-13] MEDS: Azithromycin IV(*) 500 MG in NS 0.9% 250 ML* 250 ML IVPB SCH (19:44)
[2017-04-13] MEDS: Acetaminophen TAB* 325 MG PO SCH (21:39)
[2017-04-13] MEDS: Nicotine Patch Removal NOTE PATCH OFF SCH (21:40)
[2017-04-13] MEDS: diPHENhydraMINE PO* 50 MG PO SCH (21:40)
[2017-04-14] MEDS: Albuterol/Ipratropium NEB.SOL* Albuterol 2.5 MG/Ipratropium 0.5 MG 3 ML INH SCH ×3 (02:00→13:28)
[2017-04-14] MEDS: Heparin VIAL(*) 5000 UNITS/ML VIAL (FIVE THOUSAND) SUBCUT SCH ×2 (05:49→14:40)
[2017-04-14] MEDS: Mometasone/Formoter 200/5 MDI INH SCH (07:40)
[2017-04-14] MEDS: Tiotropium CAP.INH* CAP.INH/18 MCG INH SCH (07:40)
[2017-04-14] MEDS: Nicotine PATCH 21 MG/24 HR* PATCH TRANSDERM SCH (09:33)
[2017-04-14] MEDS: Gabapentin CAP(*) 100 MG PO SCH ×2 (09:34→14:40)
[2017-04-14] MEDS: predniSONE TAB* 20 MG PO SCH (09:34)
[2017-04-14] MEDS: Pseudoephedrine HCL ER TAB* 120 MG PO SCH (09:35)
[2017-04-14] MEDS: LORazepam TAB(*) 1 MG PO SCH (09:35)
[2017-04-14] MEDS: CMC:Escitalopram (NF) 10 MG TAB PO SCH (09:35)
[2017-04-14] MEDS: Phenytoin CAP(*) 100 MG CAP.ER PO SCH (09:35)
[2017-04-14] MEDS: Famotidine TAB* 20 MG PO SCH (09:35)
[2017-04-14] MEDS: Cetirizine* 10 MG TAB PO SCH (09:35)
[2017-04-14] MEDS: carBAMazepine TAB(*) 200 MG PO SCH (09:35)
--- NOTE | 2017-04-14 12:03 | DS ---
CC: Dr. Baumann; Dr. Haley * DISCHARGE SUMMARY: DATE OF ADMISSION: 04/09/17 DATE OF DISCHARGE: 04/14/17 PRIMARY CARE PROVIDER: Dr. Baumann. LOW EMISSION AUTOMOBILE DESIGNER TO BE ESTABLISHED: Dr. Haley. DISCHARGING PROVIDER: DAVID Torres SUPERVISING PHYSICIAN: Dr. Minnie Rivera.* (DICTATED BY DAVID TORRES) PRIMARY DISCHARGE DIAGNOSES: 1. Acute respiratory failure secondary to chronic obstructive pulmonary disease exacerbation. 2. Severe chronic obstructive pulmonary disease, still requiring 7 L of supplemental oxygen at rest and 8 L with activity. SECONDARY DISCHARGE DIAGNOSES: 1. Seizure disorder, which appears to be stable. 2. Trigeminal neuralgia. 3. Tobacco abuse. DISCHARGE MEDICATIONS: 1. Albuterol inhaler 2 puffs inhaled q.4 hours as needed for shortness of breath. 2. DuoNeb inhaled q.4 to 6 hours as needed for shortness of breath. 3. Cetirizine with pseudoephedrine 1 tablet p.o. daily. 4. Vitamin D3 2000 units p.o. daily. 5. Diphenhydramine-acetaminophen 3 tablets p.o. at bedtime. 6. Lexapro 20 mg p.o. daily. 7. Gabapentin 300 mg p.o. 3 times daily. 8. Lorazepam 1 mg p.o. twice daily as needed for anxiety. 9. Dulera 2 puffs inhaled twice daily. 10. Dilantin 100 mg p.o. twice daily. 11. Zantac 300 mg p.o. twice daily. 12. Spiriva 1 capsule inhaled daily. 13. Tegretol 200 mg p.o. b.i.d. 14. Prednisone in a tapering dose to take 60 mg x3 days, followed by 40 mg x3 days, followed by 20 mg x3 days. Medication changes: 1. Start Dulera. 2. Start Spiriva. 3. Prednisone in a tapering dose. HOSPITAL IMAGING: Chest x-ray shows stigmata of COPD changes, but no acute infiltrate. HOSPITAL COURSE: This is a 66-year-old female with a significant smoking history and COPD as well as seizure disorder and trigeminal neuralgia, who presented to the emergency department with complaints of shortness of breath. The patient had been struggling with symptoms for several weeks prior to coming to the emergency department and had received 2 rounds of doxycycline and prednisone with some mild improvement each time, but also ran out of home nebulizers at one point, which certainly complicated her symptoms. The patient was noted to be severely hypoxic with PO2 on initial ABG at 56. She required 10 L of supplemental oxygen in the emergency department to maintain saturation in the low to mid 90s. Initial chest x- ray did not demonstrate a significant infiltrate nor did the patient have a significant leukocytosis and only very mild elevation of her CRP indicating that secondary pneumonia probably was not contributing to her symptoms. The patient was subsequently admitted to the hospital for COPD exacerbation. Her oxygen requirements remained quite high. She states that she has previously used supplemental oxygen in the past, but several years ago was told that it was no longer necessary, but her daughter states that she has been quite symptomatic even at baseline for the last couple of years at least. Despite this, unfortunately, she continues to smoke against medical advice despite multiple attempts to quit. The patient's symptoms of dyspnea improved throughout her hospital stay. Her lung exam, which initially showed significantly decreased breath sounds and severe wheezing also improved to the point that she had good air exchange with very faint wheeze only appreciated in the anterior lung davila at the time of discharge. She still is requiring supplemental oxygen at 7 L at rest and was able to do a full lap around the nursing unit without dyspnea or severe hypoxia with 8 L of supplemental oxygen. DISPOSITION AND FOLLOWUP PLAN: The patient is being discharged to home where she lives alone, but her daughter is nearby and helps quite a bit with managing her medical problems. She will require supplemental oxygen 7 L at rest, 8 L with activity. Referral initiated to Dr. Haley and recommend close followup with her primary care provider following this hospital admission. Please see medication changes as outlined above. DAVID TORRES [id number]/[facility] #: [id number] KAYLIE
[2017-04-14] MEDS: Cholecalciferol TAB* 1000 UNITS PO SCH (12:51)
[2017-04-14 14:41] VITALS: BP 128/68
== END 2017-04-14 14:50 | disposition home or self-care (01) | DRG 190 ==
LOC: ED 18:49 → MED 19:48
PROVIDERS: ADMIT Internal Medicine; ATTEND Internal Medicine
DX: J44.1 Chronic obstructive pulmonary disease with (acute) exacerbation (principal); J96.01 Acute respiratory failure with hypoxia; G40.909 Epilepsy, unspecified, not intractable, without status epilepticus; G50.0 Trigeminal neuralgia; J30.2 Other seasonal allergic rhinitis; F17.210 Nicotine dependence, cigarettes, uncomplicated; F32.9 Major depressive disorder, single episode, unspecified; E78.00 Pure hypercholesterolemia, unspecified; I73.9 Peripheral vascular disease, unspecified; K21.9 Gastro-esophageal reflux disease without esophagitis; K44.9 Diaphragmatic hernia without obstruction or gangrene; M47.9 Spondylosis, unspecified; M17.0 Bilateral primary osteoarthritis of knee; F41.0 Panic disorder [episodic paroxysmal anxiety]; G62.9 Polyneuropathy, unspecified; Z96.1 Presence of intraocular lens; R40.2412 Glasgow coma scale score 13-15, at arrival to emergency department; Z98.42 Cataract extraction status, left eye; Z98.41 Cataract extraction status, right eye; Z88.1 Allergy status to other antibiotic agents; Z88.5 Allergy status to narcotic agent; Z88.8 Allergy status to other drugs, medicaments and biological substances; Z82.49 Family history of ischemic heart disease and other diseases of the circulatory system; Z82.3 Family history of stroke; Z86.73 Personal history of transient ischemic attack (TIA), and cerebral infarction without residual deficits; Z99.81 Dependence on supplemental oxygen
CPT/HCPCS: 36415; 71010; 80048; 80053; 81003; 82803; 83605; 83880; 84484; 85025; 85610; 86140; 87040; 87899; 90732; 93005; 94640; 94760; A9270-GY; J0456; J0696; J1644; J2543; J2920; J2930; J7512

== ENCOUNTER 2017-06-16 10:57 | Day surgery (SDC) | payer MEDICARE, OTHER ==
[~2017-06-16 10:57] MED LIST: Buffered Lidocaine 0.9% SYRIN* 5 ML/SYR SYRINGE INTRADERM ONE; Buffered Lidocaine 0.9% SYRIN* 5 ML/SYR SYRINGE ONE; Levalbuterol 0.63MG/3ML NEB* UNIT OF USE INH ONE; Levalbuterol 1.25MG/0.5ML NEB ONE; NS 0.9% 1000 ML* 1,000 ML IV SCH
[2017-06-16] MEDS ORDERED: Midazolam* 1 MG/ML 2 ML VIAL (2 MG) ONE (11:44)
[2017-06-16] MEDS ORDERED: Lidocaine 1% INJ* 10 MG/ML 30 ML SDV ONE (12:38)
[2017-06-16] MEDS ORDERED: Lidocaine 2% JELLY* 6 ML JELLY TOPICAL ONE (13:01)
[2017-06-16] MEDS ORDERED: Lidocaine 2% PF* 10 ML AMP ONE (13:01)
[2017-06-16] MEDS ORDERED: Famotidine IV* 10 MG/ML 2 ML (20 mg) ONE (13:16)
[2017-06-16] MEDS ORDERED: Propofol* 10 MG/ML 20 ML BTL IV PUSH ONE (13:16)
[2017-06-16] MEDS ORDERED: Lidocaine 2% PF * 5 ML VIAL ONE (13:16)
[2017-06-16] MEDS ORDERED: Dexamethasone IV* 4 MG/ML 1 ML (4 MG) ONE (13:16)
[2017-06-16] MEDS ORDERED: Succinylcholine* 20 MG/ML 10 ML VIAL ONE (13:16)
[2017-06-16] MEDS ORDERED: fentaNYL* 50 MCG/ML 2 ML VIAL (100 MCG VIAL) ONE (13:39)
[2017-06-16] MEDS ORDERED: Levalbuterol 1.25MG/0.5ML NEB INH PRN (13:42)
[2017-06-16] MEDS ORDERED: Ondansetron INJ* 2 MG/ML VIAL IV PRN (13:42)
[2017-06-16] MEDS ORDERED: fentaNYL* 50 MCG/ML 2 ML VIAL (100 MCG VIAL) IV PRN (13:42)
[2017-06-16] MEDS ORDERED: Acetaminophen TAB* 325 MG PO PRN (13:42)
[2017-06-16] MEDS ORDERED: DiMENhydriNATE IV* 50 MG/ML VIAL IV PUSH PRN (13:42)
[2017-06-16] MEDS ORDERED: Levalbuterol HFA INHALER* 1 PUFF MDI ONE (14:04)
[2017-06-16 14:40] VITALS: BP 132/71
--- NOTE | 2017-06-16 22:31 | OP ---
DATE OF OPERATION: 06/16/17 - [facility] DATE OF : 54 SURGEON: Jerri Haley MD ANESTHESIOLOGIST: Dr. Tejada ANESTHESIA: General PREPROCEDURE DIAGNOSIS: Right lower lobe and middle lobe collapse. POSTPROCEDURE DIAGNOSES: Thick secretions, mucus plugging. OPERATIVE PROCEDURE: Bronchoscopy with bronchoalveolar lavage from right upper lobe. DESCRIPTION OF PROCEDURE: Informed consent was obtained from the patient prior to the procedure after all the risks and benefits were thoroughly explained. The patient recently was hospitalized for management of pneumonia. The patient was a smoker with significant smoking history, was also found to be hypoxemic. The patient had a low-dose lung CT recently, which showed right lower lobe collapse. Bronchoscopy was performed for airway inspection and to rule out endobronchial lesion. The patient was intubated with a size 7.5 ET tube. Procedure was performed under general anesthesia. Flexible Olympus bronchoscope was inserted through ET tube. Thick secretions were noted in the ET tube and at the level of delmar. Secretions were suctioned out. Bronchoscope was then advanced into right bronchial tree, which was inspected. No endobronchial lesions were noted. Thick secretions were noted and were suctioned out. Bronchoscope was then advanced into the left bronchial tree, which was inspected. No endobronchial lesions were noted. Thick secretions were noted and were suctioned. Bronchoalveolar lavage was obtained from right upper lobe. Specimen was sent to cytology and microbiology. The patient was extubated and seen in recovery in optimal condition. The patient tolerated the procedure well. [id number]/[facility] #: [id number] MTDD
== END 2017-06-16 15:03 | disposition home or self-care (01) ==
LOC: OR 10:57
PROVIDERS: ATTEND Internal Medicine
DX: T17.890A Other foreign object in other parts of respiratory tract causing asphyxiation, initial encounter (principal); J44.9 Chronic obstructive pulmonary disease, unspecified; F17.210 Nicotine dependence, cigarettes, uncomplicated; F41.9 Anxiety disorder, unspecified; Z88.5 Allergy status to narcotic agent; Z88.1 Allergy status to other antibiotic agents; Z88.8 Allergy status to other drugs, medicaments and biological substances; Z99.81 Dependence on supplemental oxygen
CPT/HCPCS: 36415; 86803; 87070; 87102; 87116; 87205; 87206; 88112; 88305; A9270-GY; J0330; J1100; J2001; J2250; J2704; J3010